=== PATIENT | female | born 1950 | race Caucasian/White ===

== ENCOUNTER 2019-09-11 17:20 | Inpatient (IN) | payer MEDICARE ==
[~2019-09-11] VITALS: Ht 149.9 cm; Wt 106.8 kg
--- NOTE | ~2019-09-11 | HEMODYNAMI ---
PATIENT:JU VÁZQUEZ MEDICAL RECORD: [id number] : 52 LOCATION:[facility] D.2117 ADMISSION DATE: 09/11/19 Generatedon:09/12/201910:08 Patient name: JU VÁZQUEZ Patient #: [id number] SSN: : 1950 Date of study: 09/12/2019 Page: Of Hemodynamic Procedure Report Patient Data Patient Demographics Procedure consent was obtained First Name: JU Gender: Female Last Name: GURPREET : 1950 Patient #: [id number] Age: 68 year(s) Race: Unknown Additional ID: [id number] Contact details Address: [place] [address] State: [place] City: [facility] Zip code: [address] Past Medical History Allergies: No known allergies Admission Admission Data Admission Date: 09/11/2019 Admission Time: 19:07 Room #: D2117 Insurance Payor: Medicare Height (in.): 59 BSA: 1.97 (m2) Height (cm.): 149.86 BMI: 47.46 (kg/m2) Weight (lbs.): 235 Weight (kg.): 106.59 Lab Results Lab Result Date: 09/12/2019 Lab Result Time: 0:00 Biochemistry Name Units Result Min Max Creatinine mg/dl 0.9 --(-*--)-- 0.6 1.3 eGFR ml/min 66 *-(----)-- 90 120 NONAFRICAN Troponin l ng/ml 10 --(----)-* 0 0.06 CBC Name Units Result Min Max Hematocrit % 55 --(----)*- 42 54 Hemoglobin g/dl 17 --(---*)-- 13.5 17.5 Procedure Procedure Types Cath Procedure Diagnostic Procedure C [facility] w/Coronaries Sedation Charges Moderate Sedation up to 30 minutes PCI Procedure Coronary Stent Coronary Stent Initial Hemochron ACT Test Procedure Description Procedure Date Procedure Date: 09/12/2019 Procedure Start Time: 9:28 Procedure End Time: 10:06 Procedure Staff Name Function Becki Horne MD Performing Physician Cuca Garcia RN Nurse Maryan Mcintyre RT Monitor Sonal Langford RT Scrub Procedure Data Cath Procedure Fluoroscopy Diagnostic fluoroscopy Total fluoroscopy Time: 6.8 time: 6.8 min min Diagnostic fluoroscopy Total fluoroscopy dose: dose: 1241 mGy 1241 mGy Contrast Material Contrast Material Type Amount (ml) Isovue 300 106 Entry Location Entry Primary Successful Side Size Upsize Upsize Entry Closure Cabrales ccessful Closure Location (Fr) 1 (Fr) 2 (Fr) Remarks Device Remarks Radial Right 6 Fr Mechanical artery Short Compression Estimated blood loss: 10 ml Diagnostic catheters Device Type Used For End Catheter Placement DIAGNOSTIC [place] 110cm 5 Procedure Fr catheter ([id number]) DIAGNOSTIC AR MOD 5Fr Procedure Catheter ([id number]) Procedure Complications No complications Procedure Medications Medication Administration Route Dosage 0.9% NaCl I.V. 100 ml/hr Oxygen etCO2 Nasal cannula 4 l/min Lidocaine 2% added to field 20 Heparin Flush Bag added to field 2 bags (1000units/500ml NS) Plavix P.O. 300 mg Versed I.V. 1 mg Fentanyl I.V. 25 mcg Oxygen 6 l/min Heparin Bolus I.V. 7000 units Nitroglycerin IC/IA I.C. 200 mcg Lopressor I.V. 5 mg Lopressor I.V. 2.5 mg Nitroglycerin SL S.L. 0.4 mg Hemodynamics Rest BSA: 1.97 (m2) O2 Consumption: Estimated: 186.05 (ml/min) O2 Consumption indexed : Estimated:94.44 (ml/min/m) Heart Rate: 74 (bpm) Pressure Samples Time Site Value (mmHg) Purpose Heart Use Rate(bpm) 9:34 LV 222/17,25 Snapshot 63 Gradients Valve Time Site Site Mean SEP/DFP Peak To Heart Use 1 2 (mmHg) (sec/min) Peak Rate (mmHg) (bpm) Aortic 9:35 LV AO 50 Snapshots Pre Cath Intra NCS Post Cath Vital Signs Time Heart Resp SPO2 etCO2 NIBP (mmHg) Rhythm Pain Sedation Rate (ipm) (%) (mmHg) Status Level (bpm) 9:16:11 76 29 92 0 Measuring NSR 0 (11) 10(A) , No pain 9:16:40 76 25 94 9.7 203/112(170) NSR 0 (11) 10(A) , No pain 9:21:12 74 15 90 7.4 215/108(159) NSR 0 (11) 10(A) , No pain 9:25:40 76 15 90 17.2 197/113(150) NSR 0 (11) 10(A) , No pain 9:30:09 76 17 90 17.9 197/111(165) NSR 0 (11) 9(A) , No pain 9:34:29 93 18 90 16.4 181/98(138) NSR 0 (11) 9(A) , No pain 9:38:53 88 20 91 16.4 189/105(144) NSR 0 (11) 9(A) , No pain 9:43:19 86 21 92 11.9 184/99(151) NSR 0 (11) 9(A) , No pain 9:47:44 91 19 93 11.9 186/106(145) NSR 0 (11) 9(A) , No pain 9:52:04 89 24 94 15.7 177/100(145) NSR 0 (11) 10(A) , No pain 9:56:26 88 22 92 13.4 177/101(137) NSR 0 (11) 9(A) , No pain 10:00:48 178 24 95 12.7 177/111(146) NSR 0 (11) 9(A) , No pain 10:05:08 81 22 96 16.4 175/102(144) NSR 0 (11) 9(A) , No pain Medications Time Medication Route Dose Verified Delivered Reason Notes Effectiveness by by 9:14:33 0.9% NaCl I.V. 100 Norred Cuca used for ml/hr Ozzie Garcia workforce development specialist 9:14:39 Oxygen etCO2 4 Norred Cuca used for Nasal l/min Ozzie Garcia procedure cannula RN 9:14:47 Lidocaine 2% added 20ml Norred Norred for local to vial Ozzie Horne MD anesthetic field 9:14:52 Heparin Flush added 2 Norred Norred used for Bag to bags Ozzie Horne MD procedure (1000units/500ml field NS) 9:18:00 Plavix P.O. 300 Norred Cuca for mg Ozzie Garcia antiplatelet RN therapy 9:28:34 Versed I.V. 1 mg Norred Cuca for sedation Mostly Ozzie Garcia sleeping @ RN 9:30:22 9:28:39 Fentanyl I.V. 25 Norred Cuca for sedation Mostly mcg Ozzie Garcia sleeping @ RN 9:30:24 9:29:43 Oxygen simple 6 Norred Cuca used for mask l/min Ozzie Garcia workforce development specialist 9:43:29 Heparin Bolus I.V. 7000 Norred Cuca for verif ied units Ozzie Garcia anticoagulation with Dr. ELEANOR Connell 9:52:57 Nitroglycerin I.C. 200 Norred Norred for IC/IA mcg Ozzie Horne MD vasodilation 9:53:11 Lopressor I.V. 5 mg Norred Cuca Per physician Ozzie Garcia RN 10:05:19 Lopressor I.V. 2.5 Norred Cuca for mg Ozzie Garcia vasodilation RN 10:05:28 Nitroglycerin SL S.L. 0.4 Norred Cuca for mg Ozzie Garcia vasodilation equal employment opportunity officer Log Time Note 8:35:22 Informed consent obtained and on chart 8:36:21 ACC Patient presents with Unstable Angina CCS Anginal Class 1--Ordinary physical activity does not cause angina, angina occurs with strenuos, rapid, or prolonged activity.. 8:36:26 ACC Patient presents with Non-STEMI CCS Anginal Class 2--Slight limitation of ordinary activity. 8:36:32 ACCPatient has been prescribed/administered the following anti-anginal medication within the last 2 weeks: None 8:36:35 Procedure Status Urgent Heart Cath (IP). 8:36:38 Time tracking: Regular hours (M-F 7:00 - 5:00) 8:36:42 Plan of Care:Hemodynamics will remain stable., Cardiac rhythm will remain stable., Comfort level will be maintained., Respiratory function will remain adequate., Patient/ family verbilizes understanding of procedure., Procedure tolerated without complication., Recovers from procedure without complications.. 8:36:56 H&P Date Dictated: 09/12/2019 ER History on chart.. 8:37:09 Patient allergic to No known allergies 8:37:17 Is the patient allergic to Iodine/contrast media? No. 8:37:20 Was the patient premedicated? N/A 8:37:43 Is patient on blood thinner?Yes 8:37:46 ACC The patient was administered the following blood thiners within the last 24 hours: ACCPlavix 8:37:49 Patient diabetic? No. 8:37:50 If diabetic: On Metformin? N/A 8:37:55 Patient not . Patient is over age 55. 8:38:58 Insurance Payor : Medicare 8:39:44 Patient Height : 59 inches 8:39:48 Patient Weight : 235 lbs 8:40:48 Lab Result : Troponin l 10 ng/ml 8:40:48 Lab Result : Creatinine 0.9 mg/dl 8:40:48 Lab Result : Hematocrit 55 % 8:40:48 Lab Result : Hemoglobin 17 g/dl 8:40:48 Lab Result : eGFR NONAFRICAN 66 ml/min 8:40:57 Diagnostic Cath Status : Urgent 8:43:19 Risk of Mortality: 0.1 8:43:22 Risk of blood transfusion: 2.8 8:43:25 Risk of MANUEL: 9.1 8:43:32 Stress Test: no; N/A ? 9:14:22 Vital chart was started 9:14:33 0.9% NaCl 100 ml/hr I.V. was administered by Cuca Garcia RN; used for procedure; Verbal order read back and verified. 9:14:39 Oxygen 4 l/min etCO2 Nasal cannula was administered by Cuca Garcia RN; used for procedure; Verbal order read back and verified. 9:14:47 Lidocaine 2% 20ml vial added to field was administered by Becki Horne MD; for local anesthetic; Verbal order read back and verified. 9:14:52 Heparin Flush Bag (1000units/500ml NS) 2 bags added to field was administered by Becki Horne MD; used for procedure; Verbal order read back and verified. 9:18:00 Plavix 300 mg P.O. was administered by Cuca Garcia RN; for antiplatelet therapy; Verbal order read back and verified. 9:18:44 Pt arrived to CL w/ SpO2 89% on RA. 4LNC placed w/ SpO2 now 94%. 9:21:36 Maryan TESFAYE(R) sent for patient. Start room use. 9:21:47 Patient received from Med II to CCL 1 Alert and oriented. Tansferred to table in Supine position. 9::50 Warm blankets applied, and alison hugger turned on for patient comfort. 9:21:51 Correct patient and procedure confirmed by team. 9:21:52 ECG and BP/O2 sat monitors applied to patient. 9::54 Baseline sample Acquired. 9::13 Full Disclosure recording started 9::18 Pre-procedure instructions explained to patient. 9:22:21 Family in patients room. 9::23 Patient NPO since Midnight. 9:22:34 Snore? Yes 9::38 Sleep apnea? No 9::43 Airway obstruction? No ? 9::50 Dentures? No ? 9::54 Patient pain scale 0/10 ?. 9:23:17 IV patent on arrival in right forearm with 0.9% NaCl at KVO. 9:23:23 Lab results completed and on chart. 9::32 Baseline sample Acquired. 9::50 Right Radial & Right Groin area was prepped with chlora-prep and draped in sterile fashion 9::52 Alarms reviewed by R. N. 9::53 Sharps counted by scrub and verified by R.N. 9::54 Physician paged 9:27:09 Quick Combo opened to sterile field. 9:27:12 Physician arrived 9::13 --------ALL STOP TIME OUT------ 9:27:20 Final Timeout: patient, procedure, and site verified with staff and physician. All members of the team are in agreement. 9:27:22 Right Radial & Right Groin site verified by team. 9:27:27 Fire Safety Assessment: A--An alcohol-based skin anteseptic being used preoperatively., C--Open oxygen or nitrous oxide is being used., D--An ESU, laser, or fiber-optic light is being used. 9:27:32 Physical assessment completed. ASA score P 3 - A patient with severe systemic disease as per Becki Horne MD. 9:27:42 2) 60-89 Mildly reduced kidney function, and other findings (as for stage 1) point to kidney disease. 9:27:46 Maximum allowable contrast dose (3.7 X eGFR X 0.75)183 ml. 9:27:51 Sedation plan: IV Moderate Sedation Medication:Versed, Fentanyl 9::58 Use device set Radial Dx or PCI 9:28:01 Procedure started. 9:28:29 Local anesthetic to right radial artery with Lidocaine 2% by Becki Horne MD.INITIAL ACCESS ONLY 9::34 Versed 1 mg I.V. was administered by Cuca Garcia RN; for sedation; Verbal order read back and verified. 9::39 Fentanyl 25 mcg I.V. was administered by Cuca Garcia RN; for sedation; Verbal order read back and verified. 9:29:12 Dr. Connell aware of O2 status. Simple mask applied @ 6L. 9::43 Oxygen 6 l/min simple mask was administered by Cuca Garcia RN; used for procedure; Verbal order read back and verified. 9:30:22 Effectiveness of Versed delivered @ ::34 is: Mostly sleeping 9:30:24 Effectiveness of Fentanyl delivered @ 9::39 is: Mostly sleeping 9:33:03 A 6 Fr Short sheath was inserted into the Right Radial artery 9:33:19 ACIST Syringe (94235) opened to sterile field. 9:33:19 Medline Cath Pack ([id number]) opened to sterile field. 9:33:20 Bag Decanter (2002) opened to sterile field. 9:33:20 ACIST Hand Control (15746) opened to sterile field. 9:33:20 ACIST Manifold (55682) opened to sterile field. 9:33:21 Tegaderm 4 x 4 (1626W) opened to sterile field. 9:33:24 MBrace Wrist Support ([id number]) opened to sterile field. 9:33:33 EMERALD Guide Wire (575-528) opened to sterile field. 9:33:34 SHEATH 6FR RAIN (8647483) opened to sterile field. 9:33:48 A DIAGNOSTIC [place] 110cm 5 Fr catheter (319316) was advanced over the wire and used for Procedure. 9:36:32 LCA angiography performed. 9:39:12 Catheter removed. 9:40:14 A DIAGNOSTIC AR MOD 5Fr Catheter ([id number]) was advanced over the wire and used for Procedure. 9:41:09 RCA angiography performed. 9:43:29 Heparin Bolus 7000 units I.V. was administered by Cuca Garcia RN; for anticoagulation; verified with Dr. Connell Verbal order read back and verified. 9:43:54 GUIDE 6FR ART 3.5 SH catheter ([id number]) opened to sterile field. 9:43:55 BMW 190cm [place] 2 J wire ([id number]) opened to sterile field. 9:43:55 COPILOT Valve Control (5666464) opened to sterile field. 9:43:56 INFLATOR Merit BasixCompak (DQ9787) opened to sterile field. 9:44:23 LV gram done using LANDIS 9:44:29 EF : 55 % 9:44:31 Catheter removed. 9:44:32 Proceeding to intervention. 9:44:46 6 Fr ART3.5SH guide catheter was inserted over the wire 9:44:50 BMW wire advanced. 9:45:20 Pre PCI Site: [place] mRCA has 80% stenosis. 9:45:51 Wire advanced across lesion. 9:48:25 Place stent Inflation Number: 1 A MEGAN RX 3.5 x 26 stent ([id number]) was prepped and advanced across the Mid RCA 80. The stent was deployed at 12 HOA for 0:20 (min:sec) 10. 9:48:54 Stent catheter was removed intact over wire. 9:52:19 Inflate balloon Inflation number: 2 A NC EUPHORA 4.0 x 12 balloon ([id number]) was prepped and advanced across the Mid RCA 10, then inflated to 14 HOA for 0:21 (min:sec) 0. 9:52:51 Balloon removed over the wire. 9:52:57 Nitroglycerin IC/IA 200 mcg I.C. was administered by Becki Horne MD; for vasodilation; Verbal order read back and verified. 9:53:11 Lopressor 5 mg I.V. was administered by Cuca Garcia RN; Per physician; Verbal order read back and verified. 9:53:11 Wire removed. 9:54:14 Guide catheter removed. 9:54:32 ZEPHYR LARGE TR BAND (901349) opened to sterile field. 9:55:35 Sheath removed intact; hemostasis achieved with Mechanical Compression to the Right Radial artery. 9:55:42 Procedure ended.(Physican Out) 9:55:54 Fluoroscopy time 06.80 minutes. 9:56:00 Fluoroscopy dose: 1241 mGy 9:56:00 Flurop Dose total: 1241 9:56:16 Dose Area Product 460965 mGy/cm. 9:56:22 Contrast amount:Isovue 300 106ml. 9:56:29 Maximum allowable dose exceeded? No. 9:56:31 Sharps counted by scrub and verified by R.N. 9:56:34 [place] band inflated with 12cc of air. 9:56:36 Insertion/operative site no bleeding no hematoma. 9:58:34 Post-op/insertion site Right Radial artery dressed using a 4 x 4 and Tegaderm. 9:58:41 Post Procedure Pulses reassessed and unchanged 9:58:45 Post-procedure physical assessment completed. ASA score P 3 - A patient with severe systemic disease as per Becki Horne MD. 9:58:48 Post procedure rhythm: unchanged. 9:58:53 Estimated blood loss: 10 ml 9:58:55 Post procedure instruction explained to patient.Patient verbalizes understanding. 9:59:47 Procedure type changed to Cath procedure, Diagnostic procedure, LHC, [facility] w/Coronaries, Sedation Charges, Moderate Sedation up to 30 minutes, PCI procedure, Coronary Stent, Coronary Stent Initial, Hemochron ACT Test 9:59:50 Procedure and supply charges have been captured, reviewed, submitted and are correct. 10:04:49 Procedure Complication : No complications 10:05:19 Lopressor 2.5 mg I.V. was administered by Cuca Garcia RN; for vasodilation; Verbal order read back and verified. 10:05:28 Nitroglycerin SL 0.4 mg S.L. was administered by Cuca Garcia RN; for vasodilation; Verbal order read back and verified. 10:05:37 ACT drawn and resulted at 349 seconds. (normal therapeutic range 180-240 seconds). 10:05:54 Vital chart was stopped 10:05:57 [facility] Findings: MVD- PCI performed (see procedure note) 10:06:03 See physician's report for complete and final results. 10:06:07 Report given to [facility]. 10:06:12 Patient transfered to [facility] with Stretcher. 10:06:14 Procedure ended. 10:06:14 Full Disclosure recording stopped 10:06:18 End room use (Document Last) Intervention Summary Intervention Notes Time ActionType Lesion and Equipment Used Action# Pressure Duration Attributes 9:48:25 Place stent Mid RCA MEGAN RX 3.5 x 1 12 00:20 26 stent ([id number]) 9:52:19 Inflate Mid RCA NC EUPHORA 4.0 2 14 00:21 balloon x 12 balloon ([id number]) Device Usage Item Name Manufacture Quantity Catalog Number Hospital Part Current M inimal Lot# / Charge Number Stock Stock Serial# Code Quick Combo Runfaces 1 [id number] 832716 868695 319068 5 ACIST Syringe Acist 1 03324 251988 209457 456643 2 0 (33247) Medical Systems Inc Medline Cath Medline 1 [id number] 242755 67329 051476 5 Pack ([id number]) Bag Decanter Microtek 1 2002S 489698 38219 554485 5 (2002S) Medical Inc. ACIST Hand Acist 1 31638 730741 399916 064415 5 Control Medical (21253) Systems Inc ACIST Manifold Acist 1 70703 692197 319358 835598 5 (13114) Medical Systems Inc Tegaderm 4 x 4 3M 1 1626W 674689 285493 249075 5 (1626W) MBrace Wrist Advanced 1 140-0250-00 296985 25659 050112 5 Support Vascular (730459676) Dynamics EMERALD Guide Cardinal 1 502-455 714832 085588 244713 5 Wire (502-455) Health SHEATH 6FR Cardinal 1 1201430 808793 8571528 838127 5 RAIN (2289703) Health DIAGNOSTIC Terumo 1 40-8453 191564 711218 639724 5 [place] 110cm 5 Fr catheter (002941) DIAGNOSTIC AR Cardinal 1 [id number] 093811 011207 911947 1 5 MOD 5Fr Health Catheter (962498W) GUIDE 6FR ART [place] 1 [id number] 109883 510475 252976 0 3.5 SH Scientific catheter (322599905) BMW 190cm Robertson 1 [id number] 772287 01571 454109 5 [place] 2 J Vascular wire (1569112L) COPILOT Valve Robertson 1 7936088 398121 069641 235588 5 Control Vascular (3567256) INFLATOR Merit Merit 1 IW8536 524933 773115 894805 1 5 easy2comply (Dynasec)coBlacksumac (AY3676) MEGAN RX 3.5 x Medtronic 1 [id number] 113331 1817525 867014 5 [id number] 26 stent ([id number]) NC EUPHORA 4.0 Medtronic 1 [id number] 323249 518814 832617 1 [id number] x 12 balloon ([id number]) ZEPHYR LARGE Cardinal 1 363551 028574 5403015 344337 5 [facility] [place] (351555) Signature Audit Floris Stage Time Signature Unsigned Intra-Procedure 09/12/2019 Maryan Mcintyre 10:07:07 AM RT(R) Intra-Procedure 09/12/2019 Cuca Garcia 10:07:44 AM RN Intra-Procedure 09/12/2019 Becki Horne MD 10:08:17 AM [address] [place] [address]
[2019-09-11 18:10] LABS: BASOPHILS 0.3 % (0-2); EOSINOPHILS 0.9 % (0-7); HEMATOCRIT 54.1 % (36.0-48.0); HEMOGLOBIN 17.2 g/dL (12-16); IMMATURE GRANULOCYTES 0.1 % (0-5); LYMPHOCYTES 18.8 % (15-50); MCH 29.4 pg (26.0-34.0); MCHC 31.8 g/dL (31.0-37.0); MCV 92.5 fL (80.0-100.0); MEAN PLATELET VOLUME 10.2 fL (7.4-10.4); MONOCYTES 6.3 % (2-11); NEUTROPHILS 73.6 % (40-80); PLATELET COUNT 150 10x3/uL (130-400); RBC 5.85 10x6/uL (4.00-5.40); RDW 14.6 % (11.5-14.5); WBC 8.9 10x3/uL (4.8-10.8)
[2019-09-11 18:26] LABS: APTT 38.5 SECONDS (22.8-39.4); INR 1.05 (0.85-1.17); PROTIME 13.6 SECONDS (11.6-15.0)
[2019-09-11 18:42] LABS: CALC OSMOLALITY 272 mosm/kg (275-300); CALCIUM 8.9 mg/dL (8.5-10.1); CARBON DIOXIDE 30.9 mmol/L (21.0-32.0); CHLORIDE - SERUM 101 mmol/L (98-107); GLUCOSE 118 mg/dL (74-106); POTASSIUM - SERUM 4.2 mmol/L (3.5-5.1); SODIUM 136 mmol/L (136-145); UREA NITROGEN 13 mg/dL (7-18); eGFR NON AFRICAN AMERICAN 58 mL/min (90-120)
[2019-09-11 19:04] LABS: ALBUMIN 3.5 g/dL (3.4-5.0); ALKALINE PHOSPHATASE 83 U/L (30-120); ALT (SGPT) 25 U/L (10-68); BILIRUBIN - TOTAL 0.63 mg/dL (0.2-1.3); CKMB 34.6 U/L (0.0-3.6); CREATINE KINASE 298 UL (21-215); MAGNESIUM - SERUM 1.7 mg/dL (1.8-2.4); PROTEIN - SERUM 7.1 g/dL (6.4-8.2)
[2019-09-11 19:06] LABS: TROPONIN-I 2.141 ng/mL (0.000-0.060)
--- NOTE | 2019-09-11 19:06 | NUR ---
CRITICAL LAB VALUE CALLED IN BY MECHANICAL SERVICE SPECIALIST. EDP NOTIFIED.
--- NOTE | 2019-09-11 23:10 | NUR ---
RECEIVED REPORT FROM ZENAIDA WEBSTER IN ER AT 1949. ARRIVED TO FLOOR AT 2031 ON STRETCHER. TRANSFERED SELF TO BED. ALERT AND ORIENTED X4. UP AD ИРИНА TO B/R. DENIES ANY CP AT THIS TIME. IV TO RT AC SL. TELEMETRY IN PLACE.
[2019-09-11 23:18] LABS: CREATINE KINASE 555 UL (21-215)
[2019-09-11 23:20] LABS: TROPONIN-I 4.994 ng/mL (0.000-0.060)
[2019-09-11 23:26] VITALS: BP 185/65; BMI 47.6
[2019-09-12 00:30] VITALS: BP 198/97
[2019-09-12 04:30] VITALS: BP 177/88
[2019-09-12 05:34] LABS: BASOPHILS 0.2 % (0-2); EOSINOPHILS 1.8 % (0-7); HEMATOCRIT 55.3 % (36.0-48.0); HEMOGLOBIN 17.1 g/dL (12-16); IMMATURE GRANULOCYTES 0.4 % (0-5); LYMPHOCYTES 12.9 % (15-50); MCH 28.9 pg (26.0-34.0); MCHC 30.9 g/dL (31.0-37.0); MCV 93.6 fL (80.0-100.0); MONOCYTES 8.4 % (2-11); NEUTROPHILS 76.3 % (40-80); PLATELET COUNT 135 10x3/uL (130-400); RBC 5.91 10x6/uL (4.00-5.40); RDW 14.8 % (11.5-14.5); WBC 8.5 10x3/uL (4.8-10.8)
[2019-09-12 06:07] LABS: CALC OSMOLALITY 274 mosm/kg (275-300); CALCIUM 8.6 mg/dL (8.5-10.1); CARBON DIOXIDE 31.2 mmol/L (21.0-32.0); CHLORIDE - SERUM 103 mmol/L (98-107); CKMB 76.9 U/L (0.0-3.6); CREATININE - SERUM 0.9 mg/dL (0.6-1.3); GLUCOSE 123 mg/dL (74-106); PHOSPHOROUS 4.5 mg/dL (2.5-4.9); POTASSIUM - SERUM 4.5 mmol/L (3.5-5.1); PRO BNP 1271 pg/mL (0-125); SODIUM 137 mmol/L (136-145); UREA NITROGEN 13 mg/dL (7-18); eGFR NON AFRICAN AMERICAN 66 mL/min (90-120)
[2019-09-12 06:15] LABS: CREATINE KINASE 704 UL (21-215); MAGNESIUM - SERUM 2.2 mg/dL (1.8-2.4)
[2019-09-12 06:16] LABS: TROPONIN-I 10.154 ng/mL (0.000-0.060)
--- NOTE | 2019-09-12 07:15 | NUR ---
RECEIVED PT IN BED AAOX4 RESP UNLABORED SKIN W/D COLOR WNL DENIES ANY NEEDS OR DISCOMFORT AT THIS TIME NAD NOTED
[2019-09-12 08:04] LABS: INR 1.01 (0.85-1.17); PROTIME 13.2 SECONDS (11.6-15.0)
[2019-09-12 08:05] LABS: D-DIMER-QUANTITATIVE 0.84 ug/mLFEU (0.20-0.54)
[2019-09-12 08:29] VITALS: BP 156/81
--- NOTE | 2019-09-12 09:05 | NUR ---
TO FACULTY NEUROPSYCHOLOGIST VIA BED
[2019-09-12 09:20] VITALS: Ht 149.9 cm; Wt 106.8 kg
[2019-09-12 13:56] VITALS: BP 151/80; BP 94/61
[2019-09-12 15:00] LABS: UDS - AMPHET NEGATIVE QUAL (NEGATIVE); UDS - BARB NEGATIVE QUAL (NEGATIVE); UDS - BENZO POSITIVE QUAL (NEGATIVE); UDS - COCAINE NEGATIVE QUAL (NEGATIVE); UDS - OPIATE NEGATIVE QUAL (NEGATIVE); UDS - PCP NEGATIVE QUAL (NEGATIVE); UDS - THC POSITIVE QUAL (NEGATIVE)
[2019-09-12 15:14] LABS: BILIRUBIN NEGATIVE (NEGATIVE); GLUCOSE NEGATIVE (NEGATIVE); KETONE NEGATIVE (NEGATIVE); NITRITE NEGATIVE (NEGATIVE); UROBILINOGEN NORMAL (NORMAL)
[2019-09-12 18:25] VITALS: BP 164/76
[2019-09-12 20:00] VITALS: BP 153/63
--- NOTE | 2019-09-12 22:02 | NUR ---
INITIAL ROUNDS COMPLETED AT 1915 HRS. PT RESTING WITH EYES CLOSED. RESP EVEN AND REGULAR. SPOUSE AT BEDSIDE. ASSESSMENT COMPLETED AT 1999 HRS. SR PER CM HR 67. VSS. PT OPENS EYES TO VERBAL STIMULI, ANSWERS QUESTIONS APPROPRIATELY, FOLLOWS COMMANDS THEN QUICKLY FALLS BACK TO SLEEP. ALERT AND OREINTED TO PERSON, PLACE AND TIME. [place]. IV TO RFA SL. LUNGS CTA. R WRIST BRUISED. DRESSING CLEAN AND DRY. DRESSING TO RFA CLEAN, DRY AND INTACT. R WRIST SPLINT INTACT. PALPABLE R RADIAL PULSE. FINGERS WARM TO TOUCH. NAILBEDS PINK WITH BRISK CAP REFILL NOTED. PT CURRENTLY RSTING WITH EYES CLOSED. RESP EVEN AND REGULAR. SR UP X2, CALL LIGHT WITHIN REACH AND SPOUSE AT BEDSIDE.
--- NOTE | 2019-09-12 23:53 | NUR ---
NO CHANGES TO R WRIST NOTED. PT DENIES ANY DISCOMFORT. AT BEDSIDE.
[2019-09-13] VITALS: BP 164/68
--- NOTE | 2019-09-13 02:24 | NUR ---
PT RESTING WITH EYES CLOSED. RESP EVEN AND REGULAR. SPOUSE AT BEDSIDE. CALL LIGHT WITHIN REACH.
[2019-09-13 04:00] VITALS: BP 148/72
--- NOTE | 2019-09-13 04:25 | NUR ---
NO CHANGES TO R WRIST NOTED. PT RESTING WITH EYES CLOSED. RESP EVEN AND REGULAR. CALL LIGHT WITHIN AND SPOUSE AT BEDSIDE.
[2019-09-13 04:56] LABS: BASOPHILS 0.2 % (0-2); EOSINOPHILS 1.6 % (0-7); HEMATOCRIT 58.3 % (36.0-48.0); HEMOGLOBIN 18.1 g/dL (12-16); IMMATURE GRANULOCYTES 0.3 % (0-5); LYMPHOCYTES 12.6 % (15-50); MCH 29.3 pg (26.0-34.0); MCV 94.3 fL (80.0-100.0); MONOCYTES 7.9 % (2-11); NEUTROPHILS 77.4 % (40-80); PLATELET COUNT 139 10x3/uL (130-400); RBC 6.18 10x6/uL (4.00-5.40)
[2019-09-13 05:26] LABS: ANION GAP 7.9 mmol/L (8-16); CALCIUM 8.8 mg/dL (8.5-10.1); CARBON DIOXIDE 34.2 mmol/L (21.0-32.0); CREATININE - SERUM 1.1 mg/dL (0.6-1.3); POTASSIUM - SERUM 4.1 mmol/L (3.5-5.1)
--- NOTE | 2019-09-13 06:33 | NUR ---
VSS THROUGHOUT NIGHT. SR PER CM. PT DENIED ANY DISCOMFORT. NEEDS MET; WILL CONTINUE TO MONITOR.
[2019-09-13 10:12] VITALS: BP 131/77
[2019-09-13] MEDS ORDERED: LISINOPRIL10 MG PO (13:07)
[2019-09-13] MEDS ORDERED: NICODERM CQ1 EAC3 TRANSDERM (13:07)
[2019-09-13] MEDS ORDERED: PLAVIX75 MG PO (13:07)
[2019-09-13] MEDS ORDERED: ALBUTEROL2.5 MG/3 M UPD (13:07)
--- NOTE | 2019-09-13 13:17 | NUR ---
OFFERED PT REFERRAL TO [place] [facility]. SHE DECLINED.
[2019-09-13] MEDS ORDERED: BAYER CHEWABLE81 MG PO (13:21)
[2019-09-13] MEDS ORDERED: ALBUTEROL SULF8.5 GM INH (13:27)
[2019-09-13] MEDS ORDERED: LIPITOR20 MG PO (13:38)
[2019-09-13] MEDS ORDERED: LOPRESSOR25 MG PO (13:38)
--- NOTE | 2019-09-13 13:38 | NUR ---
CALLED [facility], RE RX FOR BETA ROLO AND STATIN, NOT ON DISCHARGE MEDS. SHE ADVISED TO CALL DR FLORES. PER DR FLORES REC ATORVASTATIN 20 MG DAILY AND LOPRESSOR 25 MG BID. ISSUED TO [facility] IN [place]. PHARMACY IS CLOSED, LEFT ON VOICE MAIL.
--- NOTE | 2019-09-13 14:30 | NUR ---
IV AND TELEMETRY DCD. DC PLANS GIVEN. UNDERSTANDING VOICED. ESCORTED TO CAR BY W/C.
== END 2019-09-13 15:03 | disposition home or self-care (01) | DRG 246 ==
LOC: D.ER 17:20 → D.M2 19:07 → OBSVTIME 09-12 16:50 → D.M2 09-12 16:56
PROVIDERS: Family Medicine; Internal Medicine Cardiovascular Disease; ADMIT Internal Medicine Nephrology; ATTEND Internal Medicine Nephrology
PROC: B2111ZZ Fluoroscopy of Multiple Coronary Arteries using Low Osmolar Contrast (ICD-10-PCS; 2019-09-12)
PROC: B2151ZZ Fluoroscopy of Left Heart using Low Osmolar Contrast (ICD-10-PCS; 2019-09-12)
PROC: 027034Z Dilation of Coronary Artery, One Artery with Drug-eluting Intraluminal Device, Percutaneous Approach (ICD-10-PCS; principal; 2019-09-12 09:20)
PROC: 4A023N7 Measurement of Cardiac Sampling and Pressure, Left Heart, Percutaneous Approach (ICD-10-PCS; 2019-09-12 09:20)
DX: I21.4 Non-ST elevation (NSTEMI) myocardial infarction (principal); I50.31 Acute diastolic (congestive) heart failure; Z68.42 Body mass index [BMI] 45.0-49.9, adult; F17.203 Nicotine dependence unspecified, with withdrawal; D75.1 Secondary polycythemia; E66.01 Morbid (severe) obesity due to excess calories; E83.42 Hypomagnesemia; I25.10 Atherosclerotic heart disease of native coronary artery without angina pectoris; I11.0 Hypertensive heart disease with heart failure